=== PATIENT | female | born 2000 | race Caucasian/White ===

== ENCOUNTER 2022-02-03 07:47 | Emergency (ER) | payer MEDICAID ==
[~2022-02-03] VITALS: Ht 170.2 cm; Wt 74.8 kg
[2022-02-03 07:52] VITALS: BP_SYST 130
[2022-02-03] MEDS ORDERED: KETOROLAC TROMETHAMINE 30 MG VIAL IM ONE (08:15)
[2022-02-03] MEDS ORDERED: NAPR-1172 PO (10:12)
[2022-02-03 10:59] VITALS: BP_SYST 106
== END 2022-02-03 10:34 | disposition home or self-care (01) ==
LOC: SED 07:47
DX: M25.562 Pain in left knee (principal); M25.561 Pain in right knee; M25.512 Pain in left shoulder; Z79.899 Other long term (current) drug therapy
CPT/HCPCS: 99284; 82962; 73030; 73564; 81025; 96372; J1885